=== PATIENT | female | born 2000 | race Caucasian/White ===

== ENCOUNTER 2020-12-18 08:32 | Outpatient (CLI) | payer OTHER ==
[~2020-12-18] VITALS: Ht 167.6 cm; Wt 137.2 kg
[2020-12-18 09:09] VITALS: BP 152/98
[2020-12-18 10:02] LABS: AMPHETAMINE SCREEN, URINE Negative (Negative); BARBITURATE SCREEN, URINE Negative (Negative); BENZODIAZEPINE SCREEN, URINE Negative (Negative); CANNABINOID SCREEN, URINE Negative (Negative); COCAINE SCREEN, URINE Negative (Negative); METHADONE SCREEN, URINE Negative (Negative); OPIATE SCREEN, URINE Negative (Negative); PROTEIN/CREATININE RATIO,URINE 270 (0-200); TOTAL PROTEIN,URINE RANDOM 13 mg/dL (0-12)
[2020-12-18 10:08] LABS: BASOPHILS % (AUTO) 0 % (0-1); EOSINOPHILS % (AUTO) 1 % (1-7); LYMPHOCYTES % (AUTO) 11 % (22-44); MEAN CORPUSCULAR HEMOGLOBIN 22.2 pg (27.0-34.8); MEAN CORPUSCULAR HGB CONC 31.2 g/dL (32.4-35.8); MEAN PLATELET VOLUME 7.8 fL (7.4-10.4); MONOCYTES % (AUTO) 9 % (2-9); NEUTROPHILS % (AUTO) 78 % (42-75); PLATELET COUNT 340 x10^3/uL (130-400); RED BLOOD COUNT 4.23 x10^6/uL (3.82-5.3); RED CELL DISTRIBUTION WIDTH 17.6 % (9.6-15.2)
[2020-12-18 10:19] LABS: ALBUMIN 2.4 g/dL (3.4-5.0); ANION GAP 9 mmol/L (5-15); CALCIUM 8.9 mg/dL (8.5-10.1); CHLORIDE 108 mmol/L (98-107)
[2020-12-18 10:23] LABS: ALANINE AMINOTRANSFERASE 12 U/L (12-78); ALKALINE PHOSPHATASE 139 U/L (45-117); BILIRUBIN, DIRECT 0.1 mg/dL (0.1-0.2); BILIRUBIN,TOTAL 0.4 mg/dL (0.2-1.0); CREATININE 0.43 mg/dL (0.55-1.02)
[2020-12-18 10:28] LABS: MICROSCOPIC INDICATED
[2020-12-18] MEDS ORDERED: IRON SUCROSE COMPLEX 100MG/5ML ONE (10:46)
[2020-12-18] MEDS ORDERED: IRON SUCROSE COMPLEX 100MG/5ML IV ONE (11:00)
== END 2020-12-18 11:19 | disposition home or self-care (01) ==
LOC: LDOP 08:32
PROVIDERS: ATTEND Obstetrics & Gynecology
DX: O12.03 Gestational edema, third trimester (principal); O26.893 Other specified pregnancy related conditions, third trimester; R51.9 Headache, unspecified; Z3A.35 35 weeks gestation of pregnancy
CPT/HCPCS: 36415; 59025; 80053; 80307; 81001; 82248; 82570; 84156; 84550; 85025; 87081; 87086; 87147; 96375

== ENCOUNTER 2020-12-23 13:21 | Outpatient (CLI) | payer OTHER ==
[~2020-12-23] VITALS: Ht 167.6 cm; Wt 138.6 kg
[2020-12-23] MEDS ORDERED: IRON SUCROSE COMPLEX 100MG/5ML IV ONE (14:00)
[2020-12-23 14:11] VITALS: BP 146/90
[2020-12-23 14:24] LABS: BASOPHILS % (AUTO) 1 % (0-1); EOSINOPHILS % (AUTO) 1 % (1-7); LYMPHOCYTES % (AUTO) 13 % (22-44); MEAN CORPUSCULAR HEMOGLOBIN 22.6 pg (27.0-34.8); MEAN CORPUSCULAR HGB CONC 31.3 g/dL (32.4-35.8); MEAN PLATELET VOLUME 7.8 fL (7.4-10.4); MONOCYTES % (AUTO) 6 % (2-9); NEUTROPHILS % (AUTO) 79 % (42-75); PLATELET COUNT 326 x10^3/uL (130-400); RED BLOOD COUNT 4.32 x10^6/uL (3.82-5.3); RED CELL DISTRIBUTION WIDTH 18.1 % (9.6-15.2)
[2020-12-23] MEDS ORDERED: PLEASE ENTER HEIGHT AND WEIGHT MC SCH (14:30)
[2020-12-23 14:38] LABS: ALANINE AMINOTRANSFERASE 10 U/L (12-78); ALBUMIN 2.3 g/dL (3.4-5.0); ANION GAP 8 mmol/L (5-15); CALCIUM 8.7 mg/dL (8.5-10.1); CHLORIDE 107 mmol/L (98-107)
[2020-12-23 14:40] LABS: ALKALINE PHOSPHATASE 148 U/L (45-117); BILIRUBIN,TOTAL 0.4 mg/dL (0.2-1.0); CREATININE 0.41 mg/dL (0.55-1.02)
[2020-12-23 14:47] LABS: BILIRUBIN, DIRECT < 0.1 mg/dL (0.1-0.2)
[2020-12-23 14:51] LABS: MICROSCOPIC INDICATED
[2020-12-23 15:03] LABS: <PLATELET ESTIMATE> ADEQUATE; <PLT MORPHOLOGY> NORMAL PLT MORPH; ANISOCYTOSIS 1+; HYPOCHROMIA 1+; MICROCYTOSIS 1+; POLYCHROMASIA 1+
[2020-12-23 15:04] LABS: OVALOCYTES 1+
[2020-12-23 15:12] LABS: AMPHETAMINE SCREEN, URINE Negative (Negative); BARBITURATE SCREEN, URINE Negative (Negative); BENZODIAZEPINE SCREEN, URINE Negative (Negative); CANNABINOID SCREEN, URINE Negative (Negative); COCAINE SCREEN, URINE Negative (Negative); METHADONE SCREEN, URINE Negative (Negative); OPIATE SCREEN, URINE Negative (Negative)
== END 2020-12-23 15:43 | disposition home or self-care (01) ==
LOC: LDOP 13:21
PROVIDERS: ATTEND Obstetrics & Gynecology
DX: O12.03 Gestational edema, third trimester (principal); O99.013 Anemia complicating pregnancy, third trimester; O26.893 Other specified pregnancy related conditions, third trimester; R51.9 Headache, unspecified; Z3A.35 35 weeks gestation of pregnancy; Z79.899 Other long term (current) drug therapy
CPT/HCPCS: 36415; 59025; 80053; 80307; 81001; 82248; 82570; 84156; 84550; 85025; 87086; 96374; J1756

== ENCOUNTER 2020-12-30 06:19 | Inpatient (IN) | payer OTHER ==
[~2020-12-30] VITALS: Ht 170.2 cm; Wt 140.6 kg
[2020-12-30] MEDS ORDERED: METOCLOPRAMIDE 5 MG/ML, 2ML IVPush PRN (07:00)
[2020-12-30] MEDS ORDERED: ALUMINUM/MAG/SIMETHICONE 30 ML UDC PO PRN (07:00)
[2020-12-30] MEDS: D5%-LACTATED RINGERS 1,000 ML IV SCH ×2 (07:00→15:00)
[2020-12-30] MEDS ORDERED: PENICILLIN GK 5,000,000 UNITS in DEXTROSE 5% 100 ML IVPB ONE (07:00)
[2020-12-30] MEDS ORDERED: OXYTOCIN 30U/ 0.9% NaCL 500ML 500 ML IV ONE (07:00)
[2020-12-30] MEDS ORDERED: TERBUTALINE 1 MG/ML, 1ML SQ PRN (07:00)
[2020-12-30] MEDS ORDERED: SODIUM CITRATE/CITRIC ACID 30 ML UDC PO PRN (07:00)
[2020-12-30] MEDS ORDERED: OXYTOCIN 30U/ 0.9% NaCL 500ML 500 ML IV PRN (07:00)
[2020-12-30] MEDS ORDERED: MISOPROSTOL 25 MCG TABLET VG PRN (07:00)
[2020-12-30] MEDS ORDERED: TERBUTALINE 1 MG/ML, 1ML IVPush PRN (07:00)
[2020-12-30] MEDS ORDERED: ONDANSETRON 2MG/ML, 2ML IVPush PRN (07:00)
[2020-12-30] MEDS ORDERED: CALCIUM CARBONATE 500 MG TAB.CHEW PO PRN (07:00)
[2020-12-30] MEDS: LACTATED RINGERS 1,000 ML IV SCH (07:20)
[2020-12-30] MEDS ORDERED: NEWBORN KIT ONE (07:23)
[2020-12-30] MEDS ORDERED: LIDOCAINE 1%, 20ML ONE (07:23)
[2020-12-30] MEDS ORDERED: MISOPROSTOL 200 MCG TABLET ONE (07:23)
[2020-12-30 07:38] LABS: BASOPHILS % (AUTO) 1 % (0-1); EOSINOPHILS % (AUTO) 1 % (1-7); LYMPHOCYTES % (AUTO) 16 % (22-44); MEAN CORPUSCULAR HEMOGLOBIN 23.1 pg (27.0-34.8); MEAN CORPUSCULAR HGB CONC 31.5 g/dL (32.4-35.8); MEAN PLATELET VOLUME 8.1 fL (7.4-10.4); MONOCYTES % (AUTO) 6 % (2-9); NEUTROPHILS % (AUTO) 76 % (42-75); PLATELET COUNT 309 x10^3/uL (130-400); RED BLOOD COUNT 4.03 x10^6/uL (3.82-5.3); RED CELL DISTRIBUTION WIDTH 20.6 % (9.6-15.2)
[2020-12-30 16:31] LABS: AMPHETAMINE SCREEN, URINE Negative (Negative); BARBITURATE SCREEN, URINE Negative (Negative); BENZODIAZEPINE SCREEN, URINE Negative (Negative); CANNABINOID SCREEN, URINE Negative (Negative); COCAINE SCREEN, URINE Negative (Negative); METHADONE SCREEN, URINE Negative (Negative); OPIATE SCREEN, URINE Negative (Negative)
[2020-12-30 16:45] LABS: MICROSCOPIC INDICATED
[2020-12-30 19:15] VITALS: BP 137/73
[2020-12-31] MEDS: PENICILLIN GK 2,500,000 UNITS in DEXTROSE 5% 100 ML IVPB SCH ×4 (02:02→14:38)
[2020-12-31] MEDS: FENTANYL PF 100 MCG/2ML IVPush PRN ×3 (02:55→08:40)
[2020-12-31] MEDS: LACTATED RINGERS 1,000 ML IV SCH ×4 (05:52→11:25)
[2020-12-31 07:33] LABS: BASOPHILS % (AUTO) 1 % (0-1); EOSINOPHILS % (AUTO) 1 % (1-7); LYMPHOCYTES % (AUTO) 9 % (22-44); MEAN CORPUSCULAR HEMOGLOBIN 23.2 pg (27.0-34.8); MEAN CORPUSCULAR HGB CONC 31.7 g/dL (32.4-35.8); MEAN PLATELET VOLUME 8.1 fL (7.4-10.4); MONOCYTES % (AUTO) 5 % (2-9); NEUTROPHILS % (AUTO) 85 % (42-75); PLATELET COUNT 269 x10^3/uL (130-400); RED CELL DISTRIBUTION WIDTH 20.5 % (9.6-15.2)
[2020-12-31 07:39] LABS: ALANINE AMINOTRANSFERASE 7 U/L (12-78); ALBUMIN 2.1 g/dL (3.4-5.0); ANION GAP 8 mmol/L (5-15); BILIRUBIN, DIRECT 0.1 mg/dL (0.1-0.2); CALCIUM 8.4 mg/dL (8.5-10.1); CHLORIDE 110 mmol/L (98-107); CREATININE 0.36 mg/dL (0.55-1.02)
[2020-12-31 07:42] LABS: ALKALINE PHOSPHATASE 135 U/L (45-117); BILIRUBIN,TOTAL 0.5 mg/dL (0.2-1.0); TOTAL PROTEIN 6.1 g/dL (6.4-8.2)
[2020-12-31] MEDS ORDERED: FENTANYL/BUPIV./NS/PF 250 ML EPIDCONT SCH (08:00)
[2020-12-31] MEDS ORDERED: LACTATED RINGERS 1,000 ML IV SCH (08:00)
[2020-12-31] MEDS ORDERED: LACTATED RINGERS 1,000 ML IVBOLUS PRN (08:00)
[2020-12-31] MEDS ORDERED: NALOXONE 0.4 MG/ML, 1ML IVPush PRN (08:00)
[2020-12-31] MEDS ORDERED: EPHEDRINE 50 MG/ML, 1ML IVPush PRN (08:00)
[2020-12-31] MEDS ORDERED: BUPIVACAINE 0.25% ONE (09:24)
[2020-12-31] MEDS ORDERED: FENTANYL PF 500 MCG, BUPIVACAINE/PF 0.5%, 30ML 62.5 ML in SODIUM CHLORIDE 0.9% 177.5 ML EPIDCONT SCH (10:00)
[2020-12-31] MEDS ORDERED: SODIUM CITRATE/CITRIC ACID 15 ML UDC ONE (17:38)
[2020-12-31] MEDS ORDERED: CLINDAMYCIN PMX 900MG/50ML 50 ML ONE (18:04)
[2020-12-31] MEDS: CLINDAMYCIN PMX 900MG/50ML 50 ML IVPB SCH (18:07)
[2020-12-31] MEDS ORDERED: ACETAMINOPHEN 325 MG TABLET ONE (18:09)
[2020-12-31] MEDS ORDERED: ACETAMINOPHEN 325 MG TABLET PO PRN ×2 (18:30→21:30)
[2020-12-31] MEDS ORDERED: GENTAMICIN PER PHARMACY MC PRN (18:30)
[2020-12-31] MEDS ORDERED: PHARMACOKINETIC MONITORING MC PRN (19:00)
[2020-12-31] MEDS ORDERED: GENTAMICIN 160 MG in SODIUM CHLORIDE 0.9% 50 ML IV SCH (19:00)
[2020-12-31] MEDS ORDERED: PHARMACOKINETIC CONSULTATION MC ONE (19:00)
[2020-12-31] MEDS ORDERED: RHOGAM FROM BLOOD BANK 1 NOTE EA IM/IV ONE (21:30)
[2020-12-31] MEDS ORDERED: ONDANSETRON 2MG/ML, 2ML IV PRN (21:30)
[2020-12-31] MEDS ORDERED: MISOPROSTOL 200 MCG TABLET PR PRN (21:30)
[2020-12-31] MEDS ORDERED: OXYcodone/APAP 5/325MG TABLET PO PRN (21:30)
[2020-12-31] MEDS: OXYTOCIN 30U/ 0.9% NaCL 500ML 500 ML IV SCH (21:30)
[2020-12-31] MEDS ORDERED: SIMETHICONE 80 MG CHEW TAB PO PRN (21:30)
[2021-01-01] MEDS: IBUPROFEN 600 MG TABLET PO PRN ×4 (00:16→23:37)
[2021-01-01 00:20] VITALS: BP 138/75
[2021-01-01] MEDS: CLINDAMYCIN PMX 900MG/50ML 50 ML IVPB SCH (02:30)
[2021-01-01 04:31] VITALS: BP 134/72
[2021-01-01 04:59] LABS: BASOPHILS % (AUTO) 0 % (0-1); EOSINOPHILS % (AUTO) 0 % (1-7); LYMPHOCYTES % (AUTO) 8 % (22-44); MEAN CORPUSCULAR HEMOGLOBIN 23.1 pg (27.0-34.8); MEAN CORPUSCULAR HGB CONC 31.7 g/dL (32.4-35.8); MEAN PLATELET VOLUME 8.4 fL (7.4-10.4); MONOCYTES % (AUTO) 6 % (2-9); NEUTROPHILS % (AUTO) 87 % (42-75); PLATELET COUNT 295 x10^3/uL (130-400); RED BLOOD COUNT 4.09 x10^6/uL (3.82-5.3); RED CELL DISTRIBUTION WIDTH 20.6 % (9.6-15.2)
[2021-01-01] MEDS: OXYTOCIN 30U/ 0.9% NaCL 500ML 500 ML IV SCH ×2 (07:30→17:30)
[2021-01-01 08:15] VITALS: BP 112/76
[2021-01-01] MEDS: PRENATAL VIT/IRON/FA 1 EACH TABLET PO SCH (08:18)
[2021-01-01] MEDS: DOCUSATE 100 MG CAPSULE PO PRN (08:18)
[2021-01-01 16:30] VITALS: BP 131/83
[2021-01-01 21:15] VITALS: BP 132/82
[2021-01-02] MEDS: OXYTOCIN 30U/ 0.9% NaCL 500ML 500 ML IV SCH ×2 (03:30→07:08)
[2021-01-02 07:20] VITALS: BP 135/82
[2021-01-02] MEDS: PRENATAL VIT/IRON/FA 1 EACH TABLET PO SCH (13:04)
[2021-01-02] MEDS: DOCUSATE 100 MG CAPSULE PO PRN (13:05)
[2021-01-02] MEDS ORDERED: IBUP-1222 PO (15:41)
== END 2021-01-02 18:45 | disposition home or self-care (01) | DRG 807 ==
LOC: LDIP 06:19 → 2NW 01-01 00:10
PROVIDERS: ADMIT Obstetrics & Gynecology; ATTEND Obstetrics & Gynecology
PROC: 10E0XZZ Delivery of Products of Conception, External Approach (ICD-10-PCS; principal; 2020-12-31)
PROC: 3E0R3BZ Introduction of Anesthetic Agent into Spinal Canal, Percutaneous Approach (ICD-10-PCS; 2020-12-31)
PROC: 00HU33Z Insertion of Infusion Device into Spinal Canal, Percutaneous Approach (ICD-10-PCS; 2020-12-31)
PROC: 0HQ9XZZ Repair Perineum Skin, External Approach (ICD-10-PCS; 2020-12-31)
DX: O13.4 Gestational [pregnancy-induced] hypertension without significant proteinuria, complicating childbirth (principal); Z37.0 Single live birth; D64.9 Anemia, unspecified; O99.02 Anemia complicating childbirth; Z20.822 Contact with and (suspected) exposure to COVID-19; Z3A.37 37 weeks gestation of pregnancy; O70.0 First degree perineal laceration during delivery; Z91.19 Patient's noncompliance with other medical treatment and regimen
CPT/HCPCS: 36415; 80053; 80307; 81001; 82248; 82962; 84550; 85025; 86592; 86762; 86850; 86900; 87635; G0378; J2540; J3010; J1580; J2590; J7120